=== PATIENT | female | born 1960 | race Caucasian/White ===

== ENCOUNTER 2017-06-03 13:30 | Emergency (ER) | payer BC, OTHER ==
[2017-06-03 13:40] VITALS: BP 138/76; PULSE 81; RESP 16; TEMP 98.7; O2SAT 98
--- NOTE | 2017-06-03 14:16 | RADRPT ---
EXAM DATE/TIME: 06/03/2017 13:55 [place] COMPARISON: No previous studies available for comparison. INDICATIONS : Fall - left wrist pain and numbness in fingers. MEDICAL HISTORY : None. SURGICAL HISTORY : None. ENCOUNTER: Initial ACUITY: 1 day PAIN SCORE: 10/10 LOCATION: Left medial wrist FINDINGS: Three view examination of the left wrist demonstrates no soft tissue swelling, dislocation, or fractu re. The carpal bones are in normal alignment. The joint spaces are maintained. Bony mineralization is normal. CONCLUSION: No evidence of recent bony injury. Brayden Yung MD on June 03, 2017 at 14:13 Board Certified Radiologist. This report was verified electronically.
--- NOTE | 2017-06-03 17:00 | PD ---
Data Data Last Documented VS Vital Signs Date Time Temp Pulse Resp B/P (MAP) Pulse Ox O2 Delivery O2 Flow Rate FiO2 06/03/17 16:27 Room Air 06/03/17 13:40 98.7 81 16 138/76 (96) 98 Orders Orders Wrist, Complete ([id number]) (06/03/17 ) Splint Or Brace Apply/Monitor (06/03/17 16:45) Ed Discharge Order (06/03/17 16:45) MDM Supervised Visit with KORY: Yes Narrative Course I, Dr. Castro, have reviewed the advance practice practitioner's documentation and am in agreement, met with the patient face to face, made the diagnosis, and the medical decision making was done by me. *My assessment and Findings: This patient had a fall. She injured her wrist and x-ray was negative for fracture or dislocation. However it is swollen and painful and soft tissue injury splint is applied. We discussed ice and elevation orthopedic follow-up. She does not require brain imaging. She is neurologically intact without significant headache. No red flags to suggest emergent imaging of brain is indicated. Venkatesh Castro MD Jun 03, 2017 17:00
--- NOTE | 2017-06-03 17:03 | PD ---
HPI Chief Complaint: Head Injury Time Seen by Provider: 16:33 Travel History International Travel<30 days: No Contact w/Intl Traveler<30days: No Traveled to known affect area: No History of Present Illness HPI 56-year-old female presents for evaluation after mechanical fall. She reports that earlier today she fell and her dogs pulled her down. She landed on her outstretched hand and then hit the back of her head against the ground. She leaves that she may have had a brief loss of consciousness. Her complaint at this time is left wrist pain. Pain is throbbing and constant and worse with any sort of movement. She has limited range of motion in the left wrist. She denies any headache, confusion or amnesia, nausea or vomiting, blurred vision, neck or back pain. She is not on any blood thinning medications. She has no other complaints at this time. 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) Patient Takes Glucophage: No Influenza Vaccination: No ?: Not Tubal Ligation: Yes Past Surgical History Hysterectomy: Yes Other Surgery: Yes (BLADDER, RIGHT BREAST LUMPECTOMY) Social History Alcohol Use: No Tobacco Use: No Substance Use: No Allergies-Medications (Allergen,Severity, Reaction): Coded Allergies: azithromycin (Unverified Allergy, Severe, Rash, 10/14/16) erythromycin base (Unverified Allergy, Severe, Rash, 10/14/16) Uncoded Allergies: MYCINS (Allergy, Unknown, 09/23/05) Reported Meds & Prescriptions Reported Meds & Active Scripts Active Review of Systems Except as stated in HPI: all other systems reviewed are Neg Physical Exam Narrative GENERAL: Well-nourished female no acute distress SKIN: Warm and dry. HEAD: Atraumatic. Normocephalic. EYES: Pupils equal and round. No scleral icterus. No injection or drainage. CARDIOVASCULAR: Regular rate and rhythm. No murmur appreciated. RESPIRATORY: No accessory muscle use. Clear to auscultation. Breath sounds equal bilaterally. MUSCULOSKELETAL: Left wrist is swollen. There is tenderness to palpation to the mid left wrist. There is no scaphoid tenderness. The patient is unable to flex or extend the left wrist. She has minimal ability to supinate. Capillary refill less than 2 seconds all digits left hand. NEUROLOGICAL: Awake and alert. No obvious cranial nerve deficits. Motor grossly within normal limits. Normal speech. Data Data Last Documented VS Vital Signs Date Time Temp Pulse Resp B/P (MAP) Pulse Ox O2 Delivery O2 Flow Rate FiO2 06/03/17 16:27 Room Air 06/03/17 13:40 98.7 81 16 138/76 (96) 98 Orders Orders Wrist, Complete ([id number]) (06/03/17 ) Splint Or Brace Apply/Monitor (06/03/17 16:45) Ed Discharge Order (06/03/17 16:45) MDM Medical Decision Making Medical Screen Exam Complete: Yes Emergency Medical Condition: Yes Medical Record Reviewed: Yes Differential Diagnosis Left wrist sprain, ligamentous disruption, fracture, dislocation Narrative Course X-ray imaging of left wrist is normal however the patient has soft tissue swelling, she is unable to flex or extend the left wrist and she is only able to supinate a small amount. Therefore the patient will be placed in a sugar tong splint and advised to follow-up with an orthopedist. She declines prescription pain medicine. She did have a closed head injury however she has absolutely no neurologic deficits and no evidence of skull fracture and there is nothing to suggest intracranial hemorrhage. She is stable for discharge. Diagnosis Primary Impression: Left wrist sprain Referrals: Willy Mckinney Jr., MD Additional Instructions: Do not remove the splint. Ibuprofen for pain. Ice pack to the affected area several times a day 20 minutes at a time. Follow-up with an orthopedist such as Dr. Mckinney. Return for any emergent medical conditions. Med/Other Pt SpecificInfo: Orthopedic Instructions Disposition: 01 DISCHARGE HOME Condition: Stable Alex Betts Jun 03, 2017 17:03
== END 2017-06-03 17:35 | disposition home or self-care (01) ==
LOC: NEPD 13:30
DX: S63.502A Unspecified sprain of left wrist, initial encounter (principal); S09.90XA Unspecified injury of head, initial encounter; W19.XXXA Unspecified fall, initial encounter; E78.00 Pure hypercholesterolemia, unspecified
CPT/HCPCS: 29125; 73110